=== PATIENT | male | born 1985 | race Caucasian/White ===

== ENCOUNTER 2022-09-16 23:29 | Emergency (ER) | payer SELFPAY ==
[~2022-09-16] VITALS: Ht 162.6 cm; Wt 77.0 kg
[2022-09-17] MEDS ORDERED: BACITRACIN ZINC OINT UDPKT TOP ONE (01:00)
[2022-09-17] MEDS ORDERED: LIDOCAINE HCL/PF 1% 10 MG/ML 5ML VIAL INFIL ONE (01:00)
[2022-09-17] MEDS ORDERED: TETANUS, DIPHTHERIA, PERTUSSIS VAC/PF 0.5ML (>10YR OLD) IM ONE (01:00)
[2022-09-17] MEDS ORDERED: NEOM28OI48 TP (07:13)
[2022-09-17 07:26] VITALS: BP 132/87
== END 2022-09-17 07:27 | disposition home or self-care (01) ==
LOC: ER 23:29
DX: S01.511A Laceration without foreign body of lip, initial encounter (principal); Y08.89XA Assault by other specified means, initial encounter; Y93.89 Activity, other specified; Y92.89 Other specified places as the place of occurrence of the external cause; Y99.8 Other external cause status
CPT/HCPCS: 70450; 72125; 90471; 90715; 99285; J3490; Z7610